=== PATIENT | female | born 1955 | race Caucasian/White ===

== ENCOUNTER 2018-02-07 19:09 | Emergency (ER) | payer OTHER ==
[2018-02-07] MEDS ORDERED: NS 1,000 ML IV ONE ×2 (19:15→20:19)
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
--- NOTE | 2018-02-07 19:52 | CPEKG ---
Heart Rate: 80 RR Interval: 750 P-R Interval: 151 QRSD Interval: 86 QT Interval: 408 QTC Interval: 471 P [place]: 0 QRS [place]: 47 T Wave [place]: 14 EKG Severity - BORDERLINE ECG - EKG Impression: SINUS RHYTHM EKG Impression: PROBABLE LEFT ATRIAL ABNORMALITY Electronically Signed By: Christopher Hassan 07-Feb-2018 23:13:41
[2018-02-07 19:57] LABS: PLATELET COUNT 243 10^3/uL (150-400)
[2018-02-07 20:08] LABS: INR 0.94 (0.83-1.16); PROTIME(PATIENT) 12.8 SEC (12.0-15.0)
[2018-02-07 20:09] LABS: CREATINE KINASE 175 IU/L (0-156)
[2018-02-07 22:23] VITALS: BP 131/99; PULSE 69; RESP 18; TEMP 98.2; O2SAT 97
== END 2018-02-07 22:25 | disposition home or self-care (01) ==
LOC: EDUNIT#
DX: F10.920 Alcohol use, unspecified with intoxication, uncomplicated (principal); E86.9 Volume depletion, unspecified
CPT/HCPCS: G0480